=== PATIENT | female | born 1995 | race Caucasian/White ===

== ENCOUNTER 2016-12-02 13:08 | Emergency (ER) | payer OTHER ==
[~2016-12-02] VITALS: Ht 170.2 cm; Wt 56.0 kg
[~2016-12-02 13:08] MED LIST: DOXY100T PO; ERYT1O LEFT EYE; LITH300C2 PO
[2016-12-02 13:15] VITALS: BP 120/86; PULSE 96; RESP 18; TEMP 98.7; O2SAT 100
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
[2016-12-02] MEDS ORDERED: IBUP800T23 PO (14:30)
[2016-12-02] MEDS ORDERED: ROBA500T PO (14:30)
[2016-12-02] MEDS ORDERED: traMADol HCL 50 MG TAB PO ONE (14:30)
[2016-12-02 15:10] VITALS: BP 107/71
== END 2016-12-02 15:14 | disposition home or self-care (01) ==
LOC: PHEFT 13:08
DX: S83.92XA Sprain of unspecified site of left knee, initial encounter (principal); S16.9XXA Unspecified injury of muscle, fascia and tendon at neck level, initial encounter; F17.210 Nicotine dependence, cigarettes, uncomplicated; V43.52XA Car driver injured in collision with other type car in traffic accident, initial encounter; Y93.89 Activity, other specified; Y92.410 Unspecified street and highway as the place of occurrence of the external cause; Y99.8 Other external cause status
CPT/HCPCS: 73502; 73564; 99284; E0113